=== PATIENT | female | born 1960 | race Caucasian/White ===

== ENCOUNTER 2017-04-23 06:25 | Emergency (ER) | payer OTHER ==
[~2017-04-23] VITALS: Ht 157.5 cm; Wt 82.3 kg
[~2017-04-23 06:25] MED LIST: DIT5 PO
[2017-04-23 06:35] VITALS: BP 122/78
[2017-04-23] MEDS ORDERED: IBUP-2213 PO (06:48)
--- NOTE | 2017-04-23 06:50 | NUR ---
AMBULATED TO ER BED 8
--- NOTE | 2017-04-23 07:15 | NUR ---
56/F c/o lower back pain since last night at approximately 0100. Pt states "I think I threw my back out last night." Pt states she was bending over to get something and felt a pain. AOX4, clear speech. VSS.
--- NOTE | 2017-04-23 07:20 | NUR ---
Pt found lying down, resting comfortably at this time. No distress noted. All needs addressed.
--- NOTE | 2017-04-23 07:23 | NUR ---
Patient being evaluated by Dr. Reddy at bedside.
[2017-04-23] MEDS ORDERED: KETOROLAC 30 MG/ML VIAL IM ONE (07:35)
[2017-04-23 08:27] VITALS: BP 118/79
--- NOTE | 2017-04-23 08:27 | NUR ---
Patient discharged with v/s stable. Written and verbal after care instructions given and explained. Patient alert, oriented and verbalized understanding of instructions. Ambulatory with steady gait. All questions addressed prior to discharge. ID band removed. Patient advised to follow up with PMD. Rx of NORCO 7.5MG-325MG TAB, MOBIC 15MG TAB & VALIUM 10MG TAB given. Patient educated on indication of medication including possible reaction and side effects. Opportunity to ask questions provided and answered.
--- NOTE | 2017-04-23 08:27 | NUR ---
Chart checked and completed. The patient's care was reviewed and supervised by Kasandra Pichardo RN.
== END 2017-04-23 08:27 | disposition home or self-care (01) ==
LOC: MED 06:25
DX: S39.012A Strain of muscle, fascia and tendon of lower back, initial encounter (principal); Z87.442 Personal history of urinary calculi; X58.XXXA Exposure to other specified factors, initial encounter; Y93.89 Activity, other specified; Y92.89 Other specified places as the place of occurrence of the external cause; Y99.8 Other external cause status
CPT/HCPCS: 81002; 81025; 96372; 99283; J1885

== ENCOUNTER 2017-06-28 05:32 | Emergency (ER) | payer OTHER ==
[~2017-06-28] VITALS: Ht 157.5 cm; Wt 80.7 kg
[~2017-06-28 05:32] MED LIST changes: +IBUP-2213 PO
[2017-06-28 05:38] VITALS: BP 120/77
[2017-06-28 07:00] VITALS: BP 120/77
[2017-06-28 07:05] LABS: BASOPHILS # (AUTO) 0.1 K/uL (0.00-0.22); BASOPHILS % (AUTO) 3.2 % (0.0-2.0); EOSINOPHILS # (AUTO) 0.1 K/uL (0-0.4); EOSINOPHILS % (AUTO) 2.8 % (0.0-4.0); HEMATOCRIT 39.7 % (36-48); HEMOGLOBIN 13.3 g/dL (12.0-16.0); LYMPHOCYTES # (AUTO) 1.2 K/uL (2.5-16.5); LYMPHOCYTES % (AUTO) 26.7 % (20.5-51.1); MEAN CORPUSCULAR HEMOGLOBIN 32 pg (27-31); MEAN CORPUSCULAR HGB CONC 33 g/dL (33-37); MEAN CORPUSCULAR VOLUME 95 fL (80-94); MONOCYTES # (AUTO) 0.4 K/uL (0.8-1.0); MONOCYTES % (AUTO) 9.4 % (1.7-9.3); NEUTROPHILS # (AUTO) 2.8 K/uL (1.8-7.7); NEUTROPHILS % (AUTO) 57.9 % (42.2-75.2); PLATELET COUNT (AUTO) 205 K/uL (140-450); RED BLOOD CELL COUNT(AUTO) 4.19 MIL/uL (4.20-5.40); RED CELL DISTRIBUTION WIDTH 12.2 % (11.6-13.7); WHITE BLOOD COUNT (AUTO) 4.6 K/uL (4.8-10.8)
[2017-06-28 07:12] LABS: ANION GAP 9.5 (8-16); CARBON DIOXIDE 28.1 mmol/L (21-32); CREATININE 0.6 mg/dL (0.6-1.3); POTASSIUM 3.6 mmol/L (3.5-5.1)
[2017-06-28 07:19] LABS: ALBUMIN 3.5 g/dL (3.4-5.0); TOTAL BILIRUBIN 0.4 mg/dL (0.0-1.0)
[2017-06-30 06:20] LABS: HEPATITIS B CORE AB TOTAL Negative (Negative); HEPATITIS B SURFACE AB Non Reactive (.); HEPATITIS B SURFACE ANTIGEN Negative (Negative); HEPATITIS C VIRUS ANTIBODY <0.1 s/co ratio (0.0-0.9)
== END 2017-06-28 07:00 | disposition home or self-care (01) ==
LOC: EEVIPCON 05:32 → MED 05:32
DX: Z77.21 Contact with and (suspected) exposure to potentially hazardous body fluids (principal); Z79.899 Other long term (current) drug therapy; Z87.442 Personal history of urinary calculi
CPT/HCPCS: 36415; 80053; 85025; 86592; 86702; 86704; 86706; 86803; 87340; 99284

== ENCOUNTER 2017-11-17 15:37 | Emergency (ER) | payer OTHER ==
[~2017-11-17] VITALS: Ht 157.5 cm; Wt 80.7 kg
[2017-11-17 15:54] VITALS: BP 105/71
--- NOTE | 2017-11-17 16:16 | NUR ---
PT AMBULATED TO OF3.
--- NOTE | 2017-11-17 16:20 | NUR ---
57F BIB SELF C/O INMTERMITTENT MID-BACK PAIN, SHARP, RADIATES TO MID-BACK, 05/21 X 3 WEEKS, WORSENING X TODAY; PT STATES NO RECENT TRAUMA OR INJURY TO SITE AT THIS TIME; PT STATES " I THINK MY BACK WENT OUT AGAIN, AND I'M OUT OF MEDICATION"; PT C/O NAUSEA, BUT STATES NO VOMITING OR DIRRHEA AT THIS TIME; ABDOMEN SOFT, NON-TENDER, ACTIVE BOWEL SOUNDS X 4 QUADRANTS; PT AA&OX4, BL LUNG SOUNDS CLEAR, RR EVEN/UNLABORED, SKIN IS WARM/DRY/INTACT WITH EVEN AND STEADY GAIT; PT RESTING IN OF, POSITIONED FOR COMFORT; ER MD MADE AWARE OF STATUS. WILL CONTINUE TO MONITOR.
--- NOTE | 2017-11-17 16:46 | NUR ---
ISRAEL MOYER EVALUATING PT AT OF.
[2017-11-17] MEDS: ACETAMINOPHEN 325 MG TAB PO ONE (17:02)
[2017-11-17 18:44] VITALS: BP 113/79
--- NOTE | 2017-11-17 18:44 | NUR ---
Patient discharged with v/s stable. Written and verbal after care instructions given and explained. Patient alert, oriented and verbalized understanding of instructions. Ambulatory with steady gait. All questions addressed prior to discharge. ID band removed. Patient advised to follow up with PMD. Rx of NORCO, IBUPROFEN AND MEDROL given. Patient educated on indication of medication including possible reaction and side effects. Opportunity to ask questions provided and answered.
== END 2017-11-17 18:44 | disposition home or self-care (01) ==
LOC: MED 15:37
DX: M54.5 Low back pain (principal); Z79.899 Other long term (current) drug therapy; Z87.442 Personal history of urinary calculi
CPT/HCPCS: 81002; 81025; 99283

== ENCOUNTER 2018-03-08 15:29 | Emergency (ER) | payer OTHER ==
[~2018-03-08] VITALS: Ht 157.5 cm; Wt 83.5 kg
[2018-03-08 15:33] VITALS: BP 126/70
--- NOTE | 2018-03-08 15:38 | NUR ---
PT AMBULATED TO ER BED 04
--- NOTE | 2018-03-08 15:39 | NUR ---
REPORT GIVEN TO BLAZE MAYES
[2018-03-08] MEDS ORDERED: KETOROLAC 60 MG/2 ML VIAL IM ONE (15:45)
[2018-03-08] MEDS ORDERED: ONDANSETRON 4 MG ODT PO ONE (15:50)
[2018-03-08 16:16] VITALS: BP 126/70
--- NOTE | 2018-03-08 16:17 | NUR ---
Patient discharged with v/s stable. Written and verbal after care instructions given and explained. Patient alert, oriented and verbalized understanding of instructions. Ambulatory with steady gait. All questions addressed prior to discharge. ID band removed. Patient advised to follow up with PMD. Rx of MOTRIN/ZOFRAN/SUDAFED given. Patient educated on indication of medication including possible reaction and side effects. Opportunity to ask questions provided and answered.
== END 2018-03-08 16:17 | disposition home or self-care (01) ==
LOC: MED 15:29
DX: J02.9 Acute pharyngitis, unspecified (principal); J06.9 Acute upper respiratory infection, unspecified; Z87.442 Personal history of urinary calculi; Z79.899 Other long term (current) drug therapy
CPT/HCPCS: 96372; 99283; J1885; S0119

== ENCOUNTER 2018-06-07 01:15 | Emergency (ER) | payer OTHER ==
[~2018-06-07] VITALS: Ht 157.5 cm; Wt 81.2 kg
[2018-06-07 01:19] VITALS: BP 116/77
[2018-06-07] MEDS ORDERED: KETOROLAC 30 MG/ML VIAL ONE (01:48)
[2018-06-07] MEDS: KETOROLAC 60 MG/2 ML VIAL IM ONE (01:49)
[2018-06-07] MEDS: cefTRIAXone 250 MG in LIDOCAINE MPF 1% - 5 mL VIAL 0.9 ML IM ONE (02:18)
[2018-06-07 02:33] VITALS: BP 120/74
== END 2018-06-07 02:33 | disposition home or self-care (01) ==
LOC: MED 01:15
DX: N39.0 Urinary tract infection, site not specified (principal); Z79.899 Other long term (current) drug therapy
CPT/HCPCS: 81002; 96372; 99284; J0696; J1885; J2001

== ENCOUNTER 2018-10-23 07:52 | Emergency (ER) | payer OTHER ==
[~2018-10-23] VITALS: Ht 157.5 cm; Wt 68.9 kg
[2018-10-23 07:55] VITALS: BP 116/75
--- NOTE | 2018-10-23 07:57 | NUR ---
PATIENT AMBULATED TO BED 4.
--- NOTE | 2018-10-23 08:05 | NUR ---
58f bib self with c/o 8/10 right ear pain, "feeling tiara", and dry cough x 1 wk. Patient denies any injury. No discharge noted to right ear. Patient is aox4 to person, place, time, and situation. RR are even and unlabored. Abd is soft and non tender. Patient also reports of diarrhea of 2-3 episodes last night with nausea but denies any vomitting. NAD. Awaiting er md figueroa. Will continue to monitor.
--- NOTE | 2018-10-23 08:31 | NUR ---
strep swab and culture collected and sent to lab
[2018-10-23 09:56] VITALS: BP 117/70
--- NOTE | 2018-10-23 09:56 | NUR ---
Patient discharged with v/s stable. Written and verbal after care instructions given and explained. Patient alert, oriented and verbalized understanding of instructions. Ambulatory with steady gait. All questions addressed prior to discharge. ID band removed. Patient advised to follow up with PMD. Rx of Prednisone 50mg, Newberry #5-325mg, Colace 100mg, and Doxycycline 100mg given. Patient educated on indication of medication including possible reaction and side effects. Opportunity to ask questions provided and answered.
== END 2018-10-23 09:56 | disposition home or self-care (01) ==
LOC: MED 07:52
DX: R51 Headache (principal); L08.9 Local infection of the skin and subcutaneous tissue, unspecified; R13.10 Dysphagia, unspecified; Z79.899 Other long term (current) drug therapy; Z87.442 Personal history of urinary calculi
CPT/HCPCS: 87081; 99283

== ENCOUNTER 2018-12-18 20:46 | Emergency (ER) | payer OTHER ==
[~2018-12-18] VITALS: Ht 157.5 cm; Wt 79.4 kg
--- NOTE | 2018-12-18 20:56 | NUR ---
PT AMBULATED TO BE CHAIR E.
[2018-12-18 21:03] VITALS: BP 102/65
--- NOTE | 2018-12-18 21:05 | NUR ---
ASSUMED CARE OF PT AT THIS TIME. C/O PAINFUL URINATION X 4 HOURS. AAOX4 WITH EVEN AND STEADY GAIT; PATIENT STATES PAIN OF 7/10; VSS; PATIENT POSITIONED FOR COMFORT; ER MD MADE AWARE OF PT STATUS. WILL CONTINUE TO MONITOR.
--- NOTE | 2018-12-18 21:09 | NUR ---
Dr. Joseph evaluating patient at bedside.
--- NOTE | 2018-12-18 21:19 | NUR ---
Patient discharged with v/s stable. Written and verbal after care instructions given and explained. Patient alert, oriented and verbalized understanding of instructions. Ambulatory with steady gait. All questions addressed prior to discharge. ID band removed. Patient advised to follow up with PMD. Rx of MOTRIN, PYRIDIUM, AND CIPRO given. Patient educated on indication of medication including possible reaction and side effects. Opportunity to ask questions provided and answered.
[2018-12-18 21:20] VITALS: BP 102/65
== END 2018-12-18 21:19 | disposition home or self-care (01) ==
LOC: MED 20:46
DX: N12 Tubulo-interstitial nephritis, not specified as acute or chronic (principal); Z87.442 Personal history of urinary calculi; Z79.1 Long term (current) use of non-steroidal anti-inflammatories (NSAID); Z79.899 Other long term (current) drug therapy
CPT/HCPCS: 81002; 99283

== ENCOUNTER 2019-03-11 23:36 | Emergency (ER) | payer OTHER ==
[~2019-03-11] VITALS: Ht 157.5 cm; Wt 81.6 kg
[2019-03-11 23:52] VITALS: BP 108/73
--- NOTE | 2019-03-11 23:53 | NUR ---
TO BED #06 AMBULATORY
--- NOTE | 2019-03-12 00:08 | NUR ---
58/F PRESENTS SELF TO ED, C/O L THIGH PAIN, RADIATING TO LOWER BACK, X2 WEEKS. PT ALSO C/O HEADACHE, POSTERIOR NECK PAIN, AND SHOULDER PAIN, X2 WEEKS. NO ABNORMALITY, BRUISING OR SWELLING NOTED. PT DENIES DIRECT TRAUMA/INJURY, REPORTS STRENOUS LABOR AT WORK. PT AOX4, SKIN NORMAL WARM AND DRY, RR EVEN AND UNLABORED. HX KIDNEY STONES RX DITROPAN OTC MOTRIN AND SALON PAS WITH LITTLE RELIEF
--- NOTE | 2019-03-12 00:23 | NUR ---
DR. SOLIS BEDSIDE EVALUATING PT
[2019-03-12] MEDS ORDERED: KETOROLAC 60 MG/2 ML VIAL IM ONE (00:30)
[2019-03-12 02:03] VITALS: BP 126/87
--- NOTE | 2019-03-12 02:03 | NUR ---
Patient discharged with v/s stable. Written and verbal after care instructions given and explained. Patient alert, oriented and verbalized understanding of instructions. Ambulatory with steady gait. All questions addressed prior to discharge. ID band removed. Patient advised to follow up with PMD. Rx of MOTRIN, ZOFRAN, NORCO given. Patient educated on indication of medication including possible reaction and side effects. Opportunity to ask questions provided and answered.
== END 2019-03-12 02:03 | disposition home or self-care (01) ==
LOC: MED 23:36
DX: M54.5 Low back pain (principal); R11.0 Nausea; R05 Cough; Z79.1 Long term (current) use of non-steroidal anti-inflammatories (NSAID); Z79.899 Other long term (current) drug therapy
CPT/HCPCS: 81002; 96372; 99283; J1885

== ENCOUNTER 2019-04-02 19:10 | Emergency (ER) | payer OTHER ==
[~2019-04-02] VITALS: Ht 157.5 cm; Wt 80.7 kg
[2019-04-02 19:28] VITALS: BP 127/76
--- NOTE | 2019-04-02 19:38 | NUR ---
58 F PT C/O OF LOWER BACK PAIN AND LEFT FOOT P/S FALL. PT STATES PAIN LEVEL 7/10. A&0 X4. NO REDNESS OR SIGNS OF BRUISING NOTED. 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. PT FELL WHILE CLEANING. SAFEY MEASURES IMPLEMENTED. WAITING FOR MD TO EVALUATE PT.
--- NOTE | 2019-04-02 19:49 | NUR ---
DENIES HITTING HEAD AND LOC P/S FALL
[2019-04-02] MEDS ORDERED: KETOROLAC 60 MG/2 ML VIAL IM ONE (21:35)
[2019-04-02 22:14] VITALS: BP 132/67
== END 2019-04-02 22:08 | disposition home or self-care (01) ==
LOC: MED 19:10
DX: S39.012A Strain of muscle, fascia and tendon of lower back, initial encounter (principal); Z87.442 Personal history of urinary calculi; Z79.899 Other long term (current) drug therapy; W01.0XXA Fall on same level from slipping, tripping and stumbling without subsequent striking against object, initial encounter; Y93.89 Activity, other specified; Y92.89 Other specified places as the place of occurrence of the external cause; Y99.8 Other external cause status
CPT/HCPCS: 72110; 72220; 96372; 99283; J1885

== ENCOUNTER 2019-12-30 15:04 | Emergency (ER) | payer OTHER ==
[~2019-12-30] VITALS: Ht 157.5 cm; Wt 91.6 kg
[2019-12-30 15:20] VITALS: BP 113/72
[2019-12-30 15:58] VITALS: BP 113/72
--- NOTE | 2019-12-30 16:00 | NUR ---
PT C/O COUGH, SORE THROAT, AND URINARY SYMPTOMS X 3 DAYS .PT AWAKE , ALERT, AFIBRILE , AMBULATORY WITH STEADY GAIT,SCE , CBS BLF,NEGATIVE TONSILLAR CONGESTION, SOFT NABS , NONTENDER. MEDHX: DENIES
--- NOTE | 2019-12-30 16:20 | NUR ---
richi elaine at bedside
--- NOTE | 2019-12-30 16:30 | NUR ---
Patient discharged with v/s stable. Written and verbal after care instructions given and explained regarding cough. Patient alert, oriented and verbalized understanding of instructions. Ambulatory with steady gait. All questions addressed prior to discharge. ID band removed. Patient advised to follow up with PMD. Rx of tylenol , robitussin and nitrofurantoin given. Patient educated on indication of medication including possible reaction and side effects. Opportunity to ask questions provided and answered.
== END 2019-12-30 16:30 | disposition home or self-care (01) ==
LOC: MED 15:04
DX: R05 Cough (principal); J02.9 Acute pharyngitis, unspecified; R30.0 Dysuria; Z79.899 Other long term (current) drug therapy
CPT/HCPCS: 81002; 99283

== ENCOUNTER 2020-06-09 10:07 | Emergency (ER) | payer OTHER ==
[~2020-06-09] VITALS: Ht 157.5 cm; Wt 83.9 kg
[2020-06-09 10:11] VITALS: BP 132/75
--- NOTE | 2020-06-09 11:02 | NUR ---
Dr. Cowan is evaluating the patient.
[2020-06-09] MEDS ORDERED: KETOROLAC 30 MG/ML VIAL IM ONE (11:05)
--- NOTE | 2020-06-09 11:33 | NUR ---
Patient returned from x-ray.
--- NOTE | 2020-06-09 12:05 | NUR ---
COVID swab collected and sent to lab.
--- NOTE | 2020-06-09 12:12 | NUR ---
59/F presents to ED with complaints of N/V/D since yesterday with body aches and cough. Patient c/o severe 8/10 body aches. Denies fever or chills. AOX4, clear speech. 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
[2020-06-09 12:53] VITALS: BP 132/75
--- NOTE | 2020-06-09 12:53 | NUR ---
Patient discharged with v/s stable. Written and verbal after care instructions given and explained. Patient alert, oriented and verbalized understanding of instructions. Ambulatory with steady gait. All questions addressed prior to discharge. ID band removed. Patient advised to follow up with PMD. Rx of Zofran 4mg and Naprosyn 500mg given. Patient educated on indication of medication including possible reaction and side effects. Opportunity to ask questions provided and answered.
== END 2020-06-09 12:53 | disposition home or self-care (01) ==
LOC: MED 10:07
DX: R11.2 Nausea with vomiting, unspecified (principal); R19.7 Diarrhea, unspecified; R05 Cough; Z79.899 Other long term (current) drug therapy; Z87.448 Personal history of other diseases of urinary system
CPT/HCPCS: 71045; 87426; 96372; 99284; J1885; Q0092

== ENCOUNTER 2020-08-10 09:00 | Emergency (ER) | payer OTHER ==
[~2020-08-10] VITALS: Ht 157.5 cm; Wt 83.0 kg
[2020-08-10 09:09] VITALS: BP 135/91
--- NOTE | 2020-08-10 09:14 | NUR ---
59/F c/o dry cough x 2 weeks; nasal congestion, LAM, body aches, sore throat x 3 days. Had 3 episodes of vomiting last night but denies nausea now. Denies loss of taste/smell, SOB, CP, fever. 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 Pt tested [facility] negative on 06/09/20. Hx- [facility] Rx- oxybutynin NKA
--- NOTE | 2020-08-10 09:19 | NUR ---
Dr. Garcia evaluating pt at this time
--- NOTE | 2020-08-10 09:23 | NUR ---
Patient transferred to bed 9 for further care. RN reevaluating the patient at bedside.
--- NOTE | 2020-08-10 09:26 | NUR ---
Pt ambulated to restroom for UA collection.
--- NOTE | 2020-08-10 09:36 | NUR ---
Chest XR at bedside. UA dip performed, ERMD made aware of results.
--- NOTE | 2020-08-10 09:43 | NUR ---
Lab at pt bedside.
[2020-08-10 09:48] LABS: BASOPHILS % (AUTO) 0.5 % (0.0-2.0); EOSINOPHILS # (AUTO) 0.1 K/uL (0-0.4); EOSINOPHILS % (AUTO) 2.6 % (0.0-4.0); HEMATOCRIT 38.1 % (36-48); LYMPHOCYTES # (AUTO) 1.2 K/uL (2.5-16.5); LYMPHOCYTES % (AUTO) 28.5 % (20.5-51.1); MEAN CORPUSCULAR HEMOGLOBIN 32 pg (27-31); MEAN CORPUSCULAR HGB CONC 34 g/dL (33-37); MEAN CORPUSCULAR VOLUME 93.9 fL (80-94); MONOCYTES # (AUTO) 0.4 K/uL (0.8-1.0); NEUTROPHILS # (AUTO) 2.5 K/uL (1.8-7.7); NEUTROPHILS % (AUTO) 59.4 % (42.2-75.2); PLATELET COUNT (AUTO) 206 K/uL (140-450); RED BLOOD CELL COUNT(AUTO) 4.06 MIL/uL (4.20-5.40); RED CELL DISTRIBUTION WIDTH 12.6 % (11.6-13.7); WHITE BLOOD COUNT (AUTO) 4.3 K/uL (4.8-10.8)
[2020-08-10 09:54] LABS: APPEARANCE,URINE CLEAR (CLEAR); BILIRUBIN,URINE NEGATIVE (NEGATIVE); BLOOD, URINE NEGATIVE (NEGATIVE); COLOR,URINE YELLOW (YELLOW); LEUKOCYTE ESTERASE ,URINE 1+ (NEGATIVE); NITRITE, URINE NEGATIVE (NEGATIVE); UGLUCOSE NEGATIVE (NEGATIVE)
--- NOTE | 2020-08-10 09:57 | NUR ---
Pt instructed for a new clean catch for UA culture and UA dx.
[2020-08-10 10:00] LABS: RBC,URINE 0-5 /HPF (0-5)
[2020-08-10 10:04] LABS: ANION GAP 11.8 (8-16); CARBON DIOXIDE 27.7 mmol/L (21-32); CREATININE 0.6 mg/dL (0.6-1.3); POTASSIUM 3.5 mmol/L (3.5-5.1)
[2020-08-10 10:11] LABS: ALBUMIN 3.2 g/dL (3.4-5.0); BILIRUBIN,DIRECT 0.2 mg/dL (0.0-0.3); TOTAL BILIRUBIN 0.7 mg/dL (0.0-1.0)
--- NOTE | 2020-08-10 10:48 | NUR ---
Dr. Garcia is reevaluating the patient at bedside.
[2020-08-10] MEDS ORDERED: ONDANSETRON 4 MG ODT PO ONE (10:55)
[2020-08-10 11:23] VITALS: BP 135/91
--- NOTE | 2020-08-10 11:24 | NUR ---
Patient discharged with v/s stable. Written and verbal after care instructions given and explained. Patient alert, oriented and verbalized understanding of instructions. Ambulatory with steady gait. All questions addressed prior to discharge. ID band removed. Patient advised to follow up with PMD. Rx of cephalexin 500mg 1 cap QID, Zofran 4mg ODT PRN given. Patient educated on indication of medication including possible reaction and side effects. Opportunity to ask questions provided and answered.
== END 2020-08-10 11:24 | disposition home or self-care (01) ==
LOC: MED 09:00
DX: B34.9 Viral infection, unspecified (principal); N30.00 Acute cystitis without hematuria; N28.9 Disorder of kidney and ureter, unspecified; Z20.828 Contact with and (suspected) exposure to other viral communicable diseases; Z79.899 Other long term (current) drug therapy
CPT/HCPCS: 36415; 71045; 80048; 80076; 81001; 83690; 84484; 85025; 87086; 93005; 99285; Q0092; Q0162; U0003

== ENCOUNTER 2020-11-24 16:16 | Emergency (ER) | payer OTHER ==
[~2020-11-24] VITALS: Ht 157.5 cm; Wt 131.5 kg
[2020-11-24 16:22] VITALS: BP 114/74
--- NOTE | 2020-11-24 16:22 | NUR ---
Patient ambulated to bed 5. RN evaluating the patient at bedside.
--- NOTE | 2020-11-24 16:32 | NUR ---
Dr. Chino is evaluating the patient at bedside.
--- NOTE | 2020-11-24 16:32 | NUR ---
61 YO F BIB SELF FOR C/C OF 10 MID LOWER BACK PAIN X3 HOURS. PT STATES SHE WAS BENDING OVER WHEN HER "BACK WENT OUT." PT STATES SHE IS EXPERIENCING NUMBNESS AND TINGELING IN HER BILATERAL LOWER EXTREMETIES. DENIES INCONTINENCE. DENIES OTC MEDS FOR PAIN. BED LOCKED AND IN LOWEST POSITION. SIDE RAILS X1.
[2020-11-24] MEDS ORDERED: IBUPROFEN 600 MG TAB PO ONE (16:40)
[2020-11-24] MEDS ORDERED: CYCLOBENZAPRINE 10 MG TAB PO ONE (16:40)
--- NOTE | 2020-11-24 16:50 | NUR ---
Patient taken to x-ray via wheelchair by tech.
[2020-11-24] MEDS ORDERED: MORPHINE SULFATE 4 MG/ML SYR IM ONE (17:45)
[2020-11-24 18:23] VITALS: BP 116/78
--- NOTE | 2020-11-24 18:23 | NUR ---
Patient discharged with v/s stable. Written and verbal after care instructions given and explained. Patient alert, oriented and verbalized understanding of instructions. Ambulatory with steady gait. All questions addressed prior to discharge. ID band removed. Patient advised to follow up with PMD. Rx of NORCO, LIDODERM 5% given. Patient educated on indication of medication including possible reaction and side effects. Opportunity to ask questions provided and answered.
== END 2020-11-24 18:23 | disposition home or self-care (01) ==
LOC: MED 16:16
DX: M54.5 Low back pain (principal); M25.562 Pain in left knee; Z87.448 Personal history of other diseases of urinary system; W18.39XA Other fall on same level, initial encounter; Y93.89 Activity, other specified; Y92.89 Other specified places as the place of occurrence of the external cause; Y99.8 Other external cause status
CPT/HCPCS: 72100; 73562; 96372; 99284; J2270

== ENCOUNTER 2021-03-01 09:15 | Outpatient (CLI) | payer OTHER | END 2021-03-01 20:07 | disposition home or self-care (01) | LOC: MRD 09:15 | DX: M47.812 Spondylosis without myelopathy or radiculopathy, cervical region (principal); M25.512 Pain in left shoulder; M25.522 Pain in left elbow | CPT/HCPCS: 72050; 73030; 73080 ==

== ENCOUNTER 2021-03-28 13:32 | Outpatient (CLI) | payer OTHER ==
[2021-03-28 14:25] LABS: BASOPHILS % (AUTO) 0.3 % (0.0-2.0); EOSINOPHILS # (AUTO) 0.1 K/uL (0-0.4); EOSINOPHILS % (AUTO) 1.1 % (0.0-4.0); HEMATOCRIT 38.4 % (36-48); LYMPHOCYTES # (AUTO) 1.3 K/uL (2.5-16.5); LYMPHOCYTES % (AUTO) 18.7 % (20.5-51.1); MEAN CORPUSCULAR HEMOGLOBIN 32 pg (27-31); MEAN CORPUSCULAR HGB CONC 34 g/dL (33-37); MEAN CORPUSCULAR VOLUME 95.2 fL (80-94); MONOCYTES # (AUTO) 0.5 K/uL (0.8-1.0); MONOCYTES % (AUTO) 7.6 % (1.7-9.3); NEUTROPHILS # (AUTO) 4.9 K/uL (1.8-7.7); NEUTROPHILS % (AUTO) 72.3 % (42.2-75.2); PLATELET COUNT (AUTO) 202 K/uL (140-450); RED BLOOD CELL COUNT(AUTO) 4.03 MIL/uL (4.20-5.40); RED CELL DISTRIBUTION WIDTH 12.4 % (11.6-13.7); WHITE BLOOD COUNT (AUTO) 6.8 K/uL (4.8-10.8)
[2021-03-28 14:53] LABS: ALBUMIN 3.2 g/dL (3.4-5.0); ANION GAP 12.6 (8-16); CARBON DIOXIDE 23.9 mmol/L (21-32); CREATININE 0.6 mg/dL (0.6-1.3); POTASSIUM 3.5 mmol/L (3.5-5.1); THYROID STIMULATING HORMONE 1.24 uIU/mL (0.34-3.74); TOTAL BILIRUBIN 0.8 mg/dL (0.0-1.0)
== END 2021-03-28 20:21 | disposition home or self-care (01) ==
LOC: MLB 13:32
DX: E55.9 Vitamin D deficiency, unspecified (principal); E78.5 Hyperlipidemia, unspecified
CPT/HCPCS: 36415; 80053; 83036; 84443; 85025

== ENCOUNTER 2021-03-29 18:45 | Emergency (ER) | payer OTHER ==
[~2021-03-29] VITALS: Ht 154.9 cm; Wt 85.7 kg
--- NOTE | 2021-03-29 19:05 | NUR ---
REPORT RECIEVED FROM BLAZE AMADOR FOR CONTINUINTY OF CARE.
[2021-03-29 19:08] VITALS: BP 101/76
--- NOTE | 2021-03-29 19:18 | NUR ---
60 Y/O F BIB SELF FROM HOME, PT STATES SHE HAD A WORK INJURY IN HER L SHOULDER, PAIN RADIATES TO HER NECK AND DOWN ARM. PT IS NOW HAVING WORSENING L ARM PAIN WITH SWELLING NEAR BICEP. PT HAS BEEN TAKING PHYSICAL THERAPY, WAS INSTRUCTED BY PRIMARY TO COME FUFILL AN RX/ORDER WRITTEN BY HER MD. ORDER WAS COPIED AND PLACED IN CHART. SHE HAS MRI RESULTS. PT IS ABLE TO FLEX AND EXTEND ARM WITH PAIN, CAP REFILL <3. NKA MED HX: URINARY INCONTINENCE FROM POST KIDNEY STONE
--- NOTE | 2021-03-29 19:45 | NUR ---
PT RETURNED FROM CT VIA [facility].
--- NOTE | 2021-03-29 20:32 | NUR ---
ERMD AT BEDSIDE.
--- NOTE | 2021-03-29 20:56 | NUR ---
LAB AT BEDSIDE.
[2021-03-29 21:07] LABS: EOSINOPHILS # (AUTO) 0.1 K/uL (0-0.4); HEMATOCRIT 35.4 % (36-48); LYMPHOCYTES # (AUTO) 1.2 K/uL (2.5-16.5); MONOCYTES # (AUTO) 0.4 K/uL (0.8-1.0); MONOCYTES % (AUTO) 9.9 % (1.7-9.3); RED BLOOD CELL COUNT(AUTO) 3.66 MIL/uL (4.20-5.40); RED CELL DISTRIBUTION WIDTH 12.6 % (11.6-13.7)
[2021-03-29 21:14] LABS: BASOPHILS % (AUTO) 0.3 % (0.0-2.0); EOSINOPHILS % (AUTO) 2.6 % (0.0-4.0); LYMPHOCYTES % (AUTO) 27.9 % (20.5-51.1); MEAN CORPUSCULAR HEMOGLOBIN 33 pg (27-31); MEAN CORPUSCULAR HGB CONC 34 g/dL (33-37); MEAN CORPUSCULAR VOLUME 96.7 fL (80-94); NEUTROPHILS # (AUTO) 2.5 K/uL (1.8-7.7); NEUTROPHILS % (AUTO) 59.3 % (42.2-75.2); PLATELET COUNT (AUTO) 218 K/uL (140-450); WHITE BLOOD COUNT (AUTO) 4.1 K/uL (4.8-10.8)
[2021-03-29 21:36] VITALS: BP 109/74
--- NOTE | 2021-03-29 21:36 | NUR ---
Patient discharged with v/s stable. Written and verbal after care instructions given and explained. Patient verbalized understanding. Ambulatory with steady gait. All questions addressed prior to discharge. Advised to follow up with PMD.
== END 2021-03-29 21:36 | disposition home or self-care (01) ==
LOC: MED 18:45
DX: M25.512 Pain in left shoulder (principal); M85.60 Other cyst of bone, unspecified site; Z79.899 Other long term (current) drug therapy; Z87.442 Personal history of urinary calculi
CPT/HCPCS: 36415; 73200; 85025; 99284

== ENCOUNTER 2021-07-12 10:06 | Outpatient (CLI) | payer OTHER ==
[2021-07-12 11:26] LABS: ANION GAP 10.8 (8-16); CREATININE 0.7 mg/dL (0.6-1.3); POTASSIUM 3.8 mmol/L (3.5-5.1)
== END 2021-07-12 20:11 | disposition home or self-care (01) ==
LOC: MLB 10:06
PROVIDERS: ATTEND Orthopaedic Surgery
DX: M85.60 Other cyst of bone, unspecified site (principal)
CPT/HCPCS: 36415; 80048

== ENCOUNTER 2021-09-02 07:17 | Outpatient (CLI) | payer OTHER ==
[2021-09-02 08:31] LABS: ALBUMIN 3.5 g/dL (3.4-5.0); ANION GAP 10.8 (8-16); CARBON DIOXIDE 29.1 mmol/L (21-32); CREATININE 0.7 mg/dL (0.6-1.3); POTASSIUM 3.9 mmol/L (3.5-5.1); TOTAL BILIRUBIN 0.7 mg/dL (0.0-1.0)
[2021-09-03 16:18] LABS: PROTEIN, TOTAL, URINE 6.8
== END 2021-09-02 21:29 | disposition home or self-care (01) ==
LOC: MLB 07:17
PROVIDERS: ATTEND Orthopaedic Surgery
DX: M89.9 Disorder of bone, unspecified (principal)
CPT/HCPCS: 36415; 80053; 84165

== ENCOUNTER 2021-10-11 15:38 | Emergency (ER) | payer OTHER ==
[~2021-10-11] VITALS: Ht 157.5 cm; Wt 89.4 kg
--- NOTE | 2021-10-11 16:25 | NUR ---
Called in lobby and tent; no answer.
[2021-10-11 17:10] VITALS: BP 143/81
--- NOTE | 2021-10-11 17:15 | NUR ---
ISRAEL Thomas is evaluating patient
--- NOTE | 2021-10-11 17:22 | NUR ---
Urine sample collected, at counter near chair A.
--- NOTE | 2021-10-11 17:22 | NUR ---
Pt to wait in lobby
[2021-10-11] MEDS ORDERED: PRED20TA5 PO (19:02)
[2021-10-11] MEDS ORDERED: BENZ100C6 PO (19:02)
[2021-10-11] MEDS ORDERED: ALBU0.0912 INH (19:02)
[2021-10-11 19:28] VITALS: BP 121/79
--- NOTE | 2021-10-11 19:29 | NUR ---
Patient discharged with v/s stable. Written and verbal after care instructions given and explained. Patient alert, oriented and verbalized understanding of instructions. Ambulatory with steady gait. All questions addressed prior to discharge. ID band removed. Patient advised to follow up with PMD. Rx of PROVENTIL, PREDNISONEBENZONATATE given. Patient educated on indication of medication including possible reaction and side effects. Opportunity to ask questions provided and answered.
== END 2021-10-11 19:28 | disposition home or self-care (01) ==
LOC: MED 15:38
DX: J06.9 Acute upper respiratory infection, unspecified (principal); Z20.822 Contact with and (suspected) exposure to COVID-19; Z01.84 Encounter for antibody response examination; Z87.442 Personal history of urinary calculi; Z79.899 Other long term (current) drug therapy
CPT/HCPCS: 71045; 87804; 99284

== ENCOUNTER 2022-10-30 06:40 | Emergency (ER) | payer OTHER ==
[~2022-10-30] VITALS: Ht 157.5 cm; Wt 64.0 kg
[~2022-10-30 06:40] MED LIST changes: +ALBU0.0912 INH; +BENZ100C6 PO; -DIT5 PO; +OXYB5TAB44 PO; +PRED20TA5 PO
[2022-10-30 06:50] VITALS: BP 130/60
--- NOTE | 2022-10-30 06:55 | NUR ---
PATIENT TO BED 1
--- NOTE | 2022-10-30 07:00 | NUR ---
Patient being evaluated by physician at bedside.
[2022-10-30] MEDS ORDERED: KETOROLAC 30 MG/ML VIAL IVP ONE (07:05)
[2022-10-30] MEDS ORDERED: NACL 0.9% 1,000 ML IV ONE (07:05)
[2022-10-30] MEDS ORDERED: ONDANSETRON 4 MG/2 ML VIAL IVP ONE (07:05)
[2022-10-30] MEDS ORDERED: diphenhydrAMINE 50 MG/ML VIAL IVP ONE (07:05)
[2022-10-30 07:36] LABS: BASOPHILS % (AUTO) 0.2 % (0.0-2.0); EOSINOPHILS % (AUTO) 0.5 % (0.0-4.0); HEMATOCRIT 37.8 % (36-48); HEMOGLOBIN 12.9 g/dL (12.0-16.0); LYMPHOCYTES # (AUTO) 0.3 K/uL (2.5-16.5); LYMPHOCYTES % (AUTO) 6.5 % (20.5-51.1); MEAN CORPUSCULAR HEMOGLOBIN 33 pg (27-31); MEAN CORPUSCULAR HGB CONC 34 g/dL (33-37); MEAN CORPUSCULAR VOLUME 96.6 fL (80-94); MONOCYTES # (AUTO) 0.6 K/uL (0.8-1.0); MONOCYTES % (AUTO) 11.8 % (1.7-9.3); NEUTROPHILS # (AUTO) 3.8 K/uL (1.8-7.7); PLATELET COUNT (AUTO) 160 K/uL (140-450); RED BLOOD CELL COUNT(AUTO) 3.92 MIL/uL (4.20-5.40); RED CELL DISTRIBUTION WIDTH 13.3 % (11.6-13.7); WHITE BLOOD COUNT (AUTO) 4.7 K/uL (4.8-10.8)
[2022-10-30 07:52] LABS: ALBUMIN 4.1 g/dL (3.4-5.0); ANION GAP 12.3 (8-16); ASPARTATE AMINOTRANSFERASE 5 U/L (15-37); CARBON DIOXIDE 27.9 mmol/L (21-32); CHLORIDE 103 mmol/L (98-107); CREATININE 0.7 mg/dL (0.6-1.3); GFR ARICAN-AMERICAN 108 mL/min (>90); GLUCOSE 93 mg/dL (74-106); POTASSIUM 3.2 mmol/L (3.5-5.1); SODIUM SERUM 140 mmol/L (136-145); TOTAL BILIRUBIN 0.5 mg/dL (0.0-1.0); UREA NITROGEN, BLOOD 19 mg/dL (7-18)
[2022-10-30] MEDS ORDERED: IBUP-2213 PO (08:15)
[2022-10-30] MEDS ORDERED: ONDA-188 PO (08:15)
[2022-10-30] MEDS ORDERED: MUC600 PO (08:15)
[2022-10-30 08:37] VITALS: BP 119/79
== END 2022-10-30 08:24 | disposition home or self-care (01) ==
LOC: MED 06:40
DX: B34.9 Viral infection, unspecified (principal); Z20.822 Contact with and (suspected) exposure to COVID-19; N20.0 Calculus of kidney
CPT/HCPCS: 36415; 80053; 84484; 85025; 87426; 87804; 96361; 96374; 96375; 99284; J1200; J1885; J2405

== ENCOUNTER 2022-11-07 09:58 | Emergency (ER) | payer OTHER ==
[~2022-11-07] VITALS: Ht 167.6 cm; Wt 74.8 kg
[~2022-11-07 09:58] MED LIST changes: +MUC600 PO; +ONDA-188 PO
[2022-11-07 10:35] VITALS: BP 142/78
[2022-11-07] MEDS ORDERED: SUD30 PO (12:37)
[2022-11-07] MEDS ORDERED: ONDA-188 SL (12:37)
[2022-11-07] MEDS ORDERED: METO-485 PO (12:37)
--- NOTE | 2022-11-07 12:44 | NUR ---
Patient discharged with v/s stable. Written and verbal after care instructions given and explained. Patient alert, oriented and verbalized understanding of instructions. Carried with steady gait. All questions addressed prior to discharge. ID band removed. Patient advised to follow up with PMD. Rx of SHILA HERNÁNDEZ SUDAFED given. Patient educated on indication of medication including possible reaction and side effects. Opportunity to ask questions provided and answered.
== END 2022-11-07 12:44 | disposition home or self-care (01) ==
LOC: MED 09:58
DX: U07.1 COVID-19 (principal)
CPT/HCPCS: 99283

== ENCOUNTER 2023-09-27 23:50 | Emergency (ER) | payer OTHER ==
[~2023-09-27] VITALS: Ht 157.5 cm; Wt 61.2 kg
[~2023-09-27 23:50] MED LIST changes: +METO-485 PO; +ONDA-188 SL; +SUD30 PO
[2023-09-28 00:35] VITALS: BP 115/80; PULSE 70; RESP 20; TEMP 98; O2SAT 98
[2023-09-28 01:18] LABS: APPEARANCE,URINE CLEAR (CLEAR); BILIRUBIN,URINE NEGATIVE (NEGATIVE); BLOOD, URINE NEGATIVE (NEGATIVE); COLOR,URINE YELLOW (YELLOW); LEUKOCYTE ESTERASE ,URINE NEGATIVE (NEGATIVE); NITRITE, URINE NEGATIVE (NEGATIVE); PROTEIN,URINE NEGATIVE (NEGATIVE); UGLUCOSE NEGATIVE (NEGATIVE); UROBILINOGEN,URINE 0.2 EU/dL (0.2 - 1)
[2023-09-28 01:29] LABS: FLU A ANTIGEN negative (NEGATIVE); FLU B ANTIGEN NEGATIVE (NEGATIVE)
[2023-09-28] MEDS ORDERED: NAPR-54 PO (01:59)
[2023-09-28] MEDS ORDERED: ACET-10509 PO (01:59)
[2023-09-28] MEDS ORDERED: ONDA-188 PO (01:59)
[2023-09-28] MEDS ORDERED: KETOROLAC 30 MG/ML VIAL IM ONE (02:00)
[2023-09-28] MEDS ORDERED: ONDANSETRON 4 MG ODT PO ONE (02:00)
[2023-09-28 02:37] VITALS: BP 115/80; PULSE 70; RESP 20; TEMP 98; O2SAT 98
== END 2023-09-28 02:37 | disposition home or self-care (01) ==
LOC: MED 23:50
DX: B34.9 Viral infection, unspecified (principal); Z20.822 Contact with and (suspected) exposure to COVID-19; N20.0 Calculus of kidney; Z79.899 Other long term (current) drug therapy
CPT/HCPCS: 81003; 87426; 87804; 96372; 99283; J1885; Q0162

== ENCOUNTER 2024-01-07 17:04 | Emergency (ER) | payer OTHER ==
[~2024-01-07] VITALS: Ht 157.5 cm; Wt 62.1 kg
[~2024-01-07 17:04] MED LIST changes: +ACET-10509 PO; +NAPR-54 PO
[2024-01-07 17:44] VITALS: BP 132/69; PULSE 89; RESP 18; TEMP 98; O2SAT 100
[2024-01-07] MEDS: ACETAMINOPHEN EXTRA STRENGTH 500 MG TAB PO ONE (19:25)
[2024-01-07 19:46] LABS: BASOPHILS % (AUTO) 0.3 % (0.0-2.0); HEMATOCRIT 44.3 % (36-48); HEMOGLOBIN 15.2 g/dL (12.0-16.0); LYMPHOCYTES # (AUTO) 0.4 K/uL (2.5-16.5); LYMPHOCYTES % (AUTO) 7.7 % (20.5-51.1); MEAN CORPUSCULAR HEMOGLOBIN 33 pg (27-31); MEAN CORPUSCULAR HGB CONC 34 g/dL (33-37); MEAN CORPUSCULAR VOLUME 96.5 fL (80-94); MONOCYTES # (AUTO) 0.5 K/uL (0.8-1.0); MONOCYTES % (AUTO) 9.7 % (1.7-9.3); NEUTROPHILS % (AUTO) 81.3 % (42.2-75.2); PLATELET COUNT (AUTO) 186 K/uL (140-450); RED BLOOD CELL COUNT(AUTO) 4.59 MIL/uL (4.20-5.40); WHITE BLOOD COUNT (AUTO) 4.9 K/uL (4.8-10.8)
[2024-01-07 19:56] LABS: ANION GAP 11.9 (8-16); CALCIUM 9.6 mg/dL (8.5-10.1); CARBON DIOXIDE 28.1 mmol/L (21-32); CREATININE 0.7 mg/dL (0.6-1.3)
[2024-01-07 20:11] LABS: ALANINE AMINOTRANSFERASE 29 U/L (12-78); ALKALINE PHOSPHATASE 114 U/L (50-136); ASPARTATE AMINOTRANSFERASE 31 U/L (15-37); BILIRUBIN,DIRECT 0.1 mg/dL (0.0-0.3); TOTAL BILIRUBIN 0.7 mg/dL (0.0-1.0); TOTAL PROTEIN, SERUM 7.5 g/dL (6.4-8.2)
[2024-01-07 20:57] LABS: FLU A ANTIGEN negative (NEGATIVE); FLU B ANTIGEN NEGATIVE (NEGATIVE)
[2024-01-07] MEDS ORDERED: ACET-10509 PO (21:04)
[2024-01-07] MEDS ORDERED: IBUP-2213 PO (21:04)
[2024-01-07] MEDS: KETOROLAC 30 MG/ML VIAL IM ONE (21:17)
[2024-01-07 23:55] VITALS: BP 132/69; PULSE 89; RESP 18; TEMP 98; O2SAT 100
== END 2024-01-07 23:55 | disposition home or self-care (01) ==
LOC: MED 17:04
DX: J06.9 Acute upper respiratory infection, unspecified (principal); Z20.822 Contact with and (suspected) exposure to COVID-19; R51.9 Headache, unspecified; Z79.899 Other long term (current) drug therapy
CPT/HCPCS: 36415; 71045; 80048; 80076; 84484; 85025; 87426; 87804; 93005; 96372; 99285; J1885